=== PATIENT | female | born 1960 | race African-American/Black ===

== ENCOUNTER 2017-04-05 20:12 | Emergency (ER) | payer SELFPAY ==
[~2017-04-05] VITALS: Ht 167.6 cm; Wt 85.0 kg
[~2017-04-05 20:12] MED LIST: ACAI BERRY; [UNRECOGNIZED DRUG - OTHER] PO
[2017-04-05 20:14] VITALS: BP 139/65; PULSE 80; RESP 16; TEMP 98.7; O2SAT 99
--- NOTE | 2017-04-05 20:39 | PD ---
Physical Exam Date Seen by Provider: Apr 05, 2017 Time Seen by Provider: 20:36 Narrative 56 y/o female with Hx. Anemia here with weakness and dizziness for the past week. Used to see a beader tender, but recently just moved back to the area. No fever or Chills. No other symptoms. Vital Signs reviewed. Patient is Stable and awaiting Bed Placement. Data Data Last Documented VS Vital Signs Date Time Temp Pulse Resp B/P (MAP) Pulse Ox O2 Delivery O2 Flow Rate FiO2 04/05/17 20:14 98.7 80 16 139/65 (89) 99 MDM Medical Record Reviewed: Yes Supervised Visit with KRYSTIN: Yes Condition: Stable Ronak Bird Apr 05, 2017 20:39
--- NOTE | 2017-04-05 21:05 | PD ---
HPI Chief Complaint: Dizziness Time Seen by Provider: 21:04 Travel History International Travel<30 days: No Contact w/Intl Traveler<30days: No Traveled to known affect area: No History of Present Illness HPI 56-year-old female with history of anemia isn't emergency department for evaluation of dizziness over the last several days. Patient states approximately 10-12 days ago she began having episodes of dizziness, feeling "like she is on a boat." Denies any trauma. She also reports pain behind her left ear. She does have history of allergies. No other illnesses, fever, or chills. No nausea or vomiting. No focal deficits or weakness. No hematochezia or black tarry stools. She has no other symptoms to report. [facility] Past Medical History Anemia: Yes Diminished Hearing: No : 6 Para: 6 Past Surgical History Abdominal Surgery: Yes (UMBILICAL HERNIOPLASTY) Section: Yes (X 1) Social History Alcohol Use: Yes (1-2 DRINKS/WEEKENDS) Tobacco Use: Yes Substance Use: No Allergies-Medications (Allergen,Severity, Reaction): Coded Allergies: penicillin G (Unverified Allergy, Severe, 03/30/17) amoxicillin (Verified Allergy, Unknown, 04/05/17) Reported Meds & Prescriptions Reported Meds & Active Scripts Active Nasonex Nasal Solon (Mometasone Furoate) 50 Mcg/Act Naspr 2 Solon EACH NARE DAILY Doxycycline Hyclate 100 Mg Cap 100 Mg PO BID Meclizine (Meclizine HCl) 25 Mg Tab 25 Mg PO TID PRN Review of Systems Except as stated in HPI: all other systems reviewed are Neg Physical Exam Narrative GENERAL: Well-nourished female patient, ambulatory in no acute distress SKIN: Focused skin assessment warm/dry. HEAD: Atraumatic. Normocephalic. No mastoid tenderness to palpation. EYES: Pupils equal and round. No scleral icterus. No injection or drainage. EARS: Bilateral pinnae and external canals appear within normal limits. Tympanic membrane is dull with large effusion. Right tympanic membranes without erythema, dullness or perforation. ENT: No nasal bleeding or discharge. Mucous membranes pink and moist. Inflamed turbinates. No purulent drainage. Mucosa membranes are moist. NECK: Trachea midline. No JVD. CARDIOVASCULAR: Regular rate and rhythm. No murmur appreciated. RESPIRATORY: No accessory muscle use. Clear to auscultation. Breath sounds equal bilaterally. GASTROINTESTINAL: Abdomen soft, non-tender, nondistended. Hepatic and splenic margins not palpable. MUSCULOSKELETAL: No obvious deformities. No clubbing. No cyanosis. No edema. NEUROLOGICAL: Awake and alert. No obvious cranial nerve deficits. Motor grossly within normal limits. Normal speech. PSYCHIATRIC: Appropriate mood and affect; insight and judgment normal. Data Data Last Documented VS Vital Signs Date Time Temp Pulse Resp B/P (MAP) Pulse Ox O2 Delivery O2 Flow Rate FiO2 04/05/17 22:38 65 123/61 (81) 119/63 (81) 134/68 (90) 04/05/17 21:26 18 98 Room Air 04/05/17 20:14 98.7 Orders Orders Electrocardiogram (04/05/17 21:10) Basic Metabolic Panel (Bmp) (04/05/17 21:10) Complete Blood Count With Diff (04/05/17 21:10) Ckmb (Isoenzyme) Profile (04/05/17 21:10) Troponin I (04/05/17 21:10) Act Partial Throm Time (Ptt) (04/05/17 21:10) Prothrombin Time / Inr (Pt) (04/05/17 21:10) Urinalysis - C+S If Indicated (04/05/17 21:10) Chest, Single Ap (04/05/17 21:10) Ct Brain W/O Iv Contrast(Rout) (04/05/17 21:10) Ecg Monitoring (04/05/17 21:10) Iv Access Insert/Monitor (04/05/17 21:10) Oximetry (04/05/17 21:10) Meclizine (Antivert) (04/05/17 21:15) Sodium Chloride 0.9% Flush (Ns Flush) (04/05/17 21:15) Sodium Chlor 0.9% 1000 Ml Inj (Ns 1000 M (04/05/17 21:10) Orthostatic Vital Signs (04/05/17 22:24) Labs Laboratory Tests Test 04/05/17 21:15 White Blood Count 6.5 TH/MM3 Red Blood Count 3.22 MIL/MM3 Hemoglobin 8.0 GM/DL Hematocrit 26.2 % Mean Corpuscular Volume 81.5 FL Mean Corpuscular Hemoglobin 24.9 PG Mean Corpuscular Hemoglobin Concent 30.6 % Red Cell Distribution Width 16.4 % Platelet Count 370 TH/MM3 Mean Platelet Volume 7.7 FL Neutrophils (%) (Auto) 58.2 % Lymphocytes (%) (Auto) 25.5 % Monocytes (%) (Auto) 10.8 % Eosinophils (%) (Auto) 4.9 % Basophils (%) (Auto) 0.6 % Neutrophils # (Auto) 3.8 TH/MM3 Lymphocytes # (Auto) 1.7 TH/MM3 Monocytes # (Auto) 0.7 TH/MM3 Eosinophils # (Auto) 0.3 TH/MM3 Basophils # (Auto) 0.0 TH/MM3 CBC Comment DIFF FINAL Differential Comment Prothrombin Time 10.7 SEC Prothromb Time International Ratio 1.0 RATIO Activated Partial Thromboplast Time 27.8 SEC Blood Urea Nitrogen 15 MG/DL Creatinine 0.72 MG/DL Random Glucose 81 MG/DL Calcium Level 8.6 MG/DL Sodium Level 138 MEQ/L Potassium Level 3.7 MEQ/L Chloride Level 105 MEQ/L Carbon Dioxide Level 26.4 MEQ/L Anion Gap 7 MEQ/L Estimat Glomerular Filtration Rate 102 ML/MIN Total Creatine Kinase 94 U/L Troponin I LESS THAN 0.02 NG/ML MDM Medical Decision Making Medical Screen Exam Complete: Yes Emergency Medical Condition: Yes Medical Record Reviewed: Yes Differential Diagnosis Vertigo versus otitis media versus sinusitis versus intracranial etiology versus electrolyte abnormality versus anemia Narrative Course 56-year-old female with history of anemia presents to the emergency department for evaluation of dizziness. Patient appears without distress. She is ambulatory without difficulty. No exam is nonfocal. CT imaging is without acute intracranial abnormality. CBC is with anemia of 8.0. No leukocytosis. BMP is without acute concern. Vital signs are stable. Orthostatic vital signs are also stable. Patient does appear to have an effusion in the left ear. I discussed the patient my attending physician. Patient will be treated for otitis media and will be discharged to follow-up with primary care provider. I have encouraged iron supplement and follow-up with a heme FOR further evaluation of this. She agrees to return immediately with any acute worsening symptoms. Diagnosis Primary Impression: Anemia Qualified Codes: D64.9 - Anemia, unspecified Additional Impressions: Left otitis media with effusion Sinusitis Qualified Codes: J32.0 - Chronic maxillary sinusitis Referrals: Ear / Nose / Throat Specialist Oncologist Primary Care Physician Patient Instructions: Anemia (DC), General Instructions, Serous Otitis Media ( ED) Departure Forms: Tests/Procedures, Work Release Enter return to work date: Apr 07, 2017 Additional Instructions: Follow-up with a primary care provider Seek hematology evaluation for further evaluation of your anemia [id number] iron supplements as directed on the package. Stool softeners recommended if you are taking these. Also be aware that it will turn your stool black Return immediately to the emergency department with any acute worsening symptoms Med/Other Pt SpecificInfo: Prescription(s) given Scripts Mometasone Nasal Solon (Nasonex Nasal Solon) 50 Mcg/Act Naspr 2 SPRAY EACH NARE DAILY for Allergy Management, #1 BOTTLE 0 Refills Prov: Katiana Benitez 04/05/17 Doxycycline Hyclate (Doxycycline Hyclate) 100 Mg Cap 100 MG PO BID for Infection, #20 CAP 0 Refills Prov: Katiana Benitez 04/05/17 Meclizine (Meclizine) 25 Mg Tab 25 MG PO TID Y for VERTIGO, #20 TAB 0 Refills Prov: Katiana Benitez 04/05/17 Disposition: 01 DISCHARGE HOME Condition: Stable Katiana Benitez Apr 05, 2017 21:05
[2017-04-05] MEDS ORDERED: SODIUM CHLOR 0.9% 1000 ML INJ 1,000 ML IV ONE (21:10)
[2017-04-05] MEDS ORDERED: SODIUM CHLORIDE 0.9% FLUSH 10 ML FLUSH IVF PRN (21:15)
[2017-04-05] MEDS ORDERED: MECLIZINE HCL 25 MG TAB PO ONE (21:15)
[2017-04-05 21:16] VITALS: BP 128/62; PULSE 73; RESP 18; O2SAT 97
[2017-04-05 21:26] VITALS: RESP 18; O2SAT 98
[2017-04-05 21:48] LABS: AUTOMATED NEUTROPHIL # 3.8 TH/MM3 (1.8-7.7); BASOPHIL % 0.6 % (0.0-2.0); EOSINOPHIL # 0.3 TH/MM3 (0-0.4); EOSINOPHIL % 4.9 % (0.0-4.0); HEMATOCRIT 26.2 % (35.0-46.0); HEMO FLAGS DIFF FINAL; LYMPH % 25.5 % (9.0-44.0); LYMPHOCYTE # 1.7 TH/MM3 (1.0-4.8); MEAN CELL VOLUME 81.5 FL (80.0-100.0); MEAN CORPUSCULAR HEMOGLOBIN 24.9 PG (27.0-34.0); MEAN CORPUSCULAR HGB CONC 30.6 % (32.0-36.0); MONO % 10.8 % (0.0-8.0); NEUT % 58.2 % (16.0-70.0); PLATELET COUNT 370 TH/MM3 (150-450); RED BLOOD COUNT 3.22 MIL/MM3 (4.00-5.30); RED CELL DISTRIBUTION WIDTH 16.4 % (11.6-17.2); WHITE BLOOD COUNT 6.5 TH/MM3 (4.0-11.0)
--- NOTE | 2017-04-05 22:02 | RADRPT ---
EXAM DATE/TIME: 04/05/2017 21:21 [facility] COMPARISON: No previous studies available for comparison. INDICATIONS : Palpitations MEDICAL HISTORY : None. SURGICAL HISTORY : None. ENCOUNTER: Initial ACUITY: 2 weeks PAIN SCORE: 0/10 LOCATION: chest FINDINGS: A single view of the chest demonstrates the lungs to be symmetrically aerated without evidence of mas s, infiltrate or effusion. The cardiomediastinal contours are unremarkable. Osseous structures are intact. CONCLUSION: No acute disease. Bobby Mendoza MD on April 05, 2017 at 22:00 Board Certified Radiologist. This report was verified electronically.
[2017-04-05 22:07] LABS: ANION GAP 7 MEQ/L (5-15); APTT (PATIENT) 27.8 SEC (24.3-30.1); BICARBONATE 26.4 MEQ/L (21.0-32.0); BLOOD UREA NITROGEN 15 MG/DL (7-18); CHLORIDE 105 MEQ/L (98-107); GLOMERULAR FILTRATION RATE 102 ML/MIN (>89); POTASSIUM 3.7 MEQ/L (3.5-5.1); PROTHROMBIN TIME - PATIENT 10.7 SEC (9.8-11.6); SODIUM (NA) 138 MEQ/L (136-145)
--- NOTE | 2017-04-05 22:10 | RADRPT ---
EXAM DATE/TIME: 04/05/2017 21:58 [facility] COMPARISON: CT BRAIN W/O CONTRAST, January 10, 2010, 15:35. INDICATIONS : Dizziness x1 week. RADIATION DOSE: 35.51 CTDIvol (mGy) MEDICAL HISTORY : None SURGICAL HISTORY : section. Umbilical hernioplasty. ENCOUNTER: Initial ACUITY: 1 week PAIN SCALE: 0/10 LOCATION: cranial TECHNIQUE: Multiple contiguous axial images were obtained of the head. Using automated exposure control and adj ustment of the mA and/or kV according to patient size, radiation dose was kept as low as reasonably a chievable to obtain optimal diagnostic quality images. DICOM format image data is available electro nically for review and comparison. FINDINGS: CEREBRUM: The ventricles are normal for age. No evidence of midline shift, mass lesion, hemorrhage or acute in farction. No extra-axial fluid collections are seen. POSTERIOR FOSSA: The cerebellum and brainstem are intact. The 4th ventricle is midline. The cerebellopontine angle i s unremarkable. EXTRACRANIAL: Mild mucosal swelling is evident in the paranasal sinuses. The visualized portion of the orbits is in tact. SKULL: The calvaria is intact. No evidence of skull fracture. CONCLUSION: 1. No evidence of acute intracranial process. 2. Mucosal swelling in the paranasal sinuses. Bobby Mendoza MD on April 05, 2017 at 22:06 Board Certified Radiologist. This report was verified electronically.
[2017-04-05 22:14] LABS: CREATINE KINASE 94 U/L (26-192)
[2017-04-05 22:38] VITALS: BP_SYST 119; BP_SYST 123; BP_SYST 134; BP_DIAS 61; BP_DIAS 63; BP_DIAS 68
[2017-04-05] MEDS ORDERED: MECL-62 PO (22:42)
[2017-04-05] MEDS ORDERED: DOXY100C PO (22:44)
[2017-04-05] MEDS ORDERED: MOME17I EACH NARE (22:44)
[2017-04-05 22:59] VITALS: BP 116/57; PULSE 82; RESP 18; O2SAT 97
--- NOTE | 2017-04-06 13:44 | EKG ---
Date Performed: 04/05/2017 Time Performed: 21:25:32 PTAGE: 56 years EKG: Sinus rhythm NORMAL ECG Compared to prior tracing no significant change PREVIOUS TRACING DOCTOR: Marimar Lopez Interpretating Date/Time 04/06/2017 13:40:26
== END 2017-04-05 23:08 | disposition home or self-care (01) ==
LOC: NEPC 20:12
DX: D64.9 Anemia, unspecified (principal); H65.92 Unspecified nonsuppurative otitis media, left ear; J32.0 Chronic maxillary sinusitis; Z72.0 Tobacco use
CPT/HCPCS: 70450; 71010; 80048; 82550; 84484; 85025; 85610; 85730; 93005; 96360; 99285; J7030